=== PATIENT | female | born 1985 | race Caucasian/White ===

== ENCOUNTER → 2017-03-30 | Outpatient (REF) | payer OTHER ==
[~2017-03-30] MED LIST: FERR325T3 PO; MOTR200T44 PO; PERC5TAB12 PO; PRENTAB31 PO
== END ==
LOC: M LAB REF 13:21
PROVIDERS: ATTEND Obstetrics & Gynecology
DX: Z01.419 Encounter for gynecological examination (general) (routine) without abnormal findings (principal); Z11.51 Encounter for screening for human papillomavirus (HPV)

== ENCOUNTER → 2017-03-30 | Outpatient (CLI) | payer OTHER | LOC: M SMT 11:26 | PROVIDERS: ATTEND Obstetrics & Gynecology | DX: Z11.3 Encounter for screening for infections with a predominantly sexual mode of transmission (principal) ==

== ENCOUNTER 2017-10-20 13:36 | Emergency (ER) | payer OTHER | END 2017-10-20 14:41 | disposition home or self-care (01) | LOC: M ED 13:36 | DX: K02.9 Dental caries, unspecified (principal) | CPT/HCPCS: 99282 ==

== ENCOUNTER → 2019-09-14 | Outpatient (REF) | payer OTHER ==
[~2019-09-14] MED LIST changes: +CLIN150C14 PO; +TYLE325T5 PO
[2019-09-14 16:16] LABS: INFLUENZA A AMPLIFICATION NEGATIVE (NEGATIVE); INFLUENZA B AMPLIFICATION POSITIVE (NEGATIVE)
== END ==
LOC: M LAB REF 15:13
PROVIDERS: ATTEND Physician Assistant
DX: J11.1 Influenza due to unidentified influenza virus with other respiratory manifestations (principal)

== ENCOUNTER 2019-10-04 09:10 | Emergency (ER) | payer OTHER ==
[~2019-10-04] VITALS: Ht 152.4 cm; Wt 69.9 kg
[2019-10-04 09:11] VITALS: BP 134/77
[2019-10-04] MEDS ORDERED: OTEZ1TAB3 (09:18)
[2019-10-04] MEDS ORDERED: CYCL10TA PO (09:54)
[2019-10-04] MEDS ORDERED: NAPR-837 PO (09:54)
== END 2019-10-04 10:03 | disposition home or self-care (01) ==
LOC: M ED 09:10
DX: S39.012A Strain of muscle, fascia and tendon of lower back, initial encounter (principal); W00.0XXA Fall on same level due to ice and snow, initial encounter; Y92.89 Other specified places as the place of occurrence of the external cause; Y93.89 Activity, other specified; Y99.8 Other external cause status; M54.16 Radiculopathy, lumbar region; F17.200 Nicotine dependence, unspecified, uncomplicated; Z88.2 Allergy status to sulfonamides

== ENCOUNTER → 2024-02-19 | Outpatient (REF) | payer OTHER, MEDICAID ==
[~2024-02-19] MED LIST changes: +APRE30TA3; -CLIN150C14 PO; +CLIN150C17 PO; +CYCL-707 PO; +NAPR-837 PO
== END ==
LOC: M LAB REF 16:04
PROVIDERS: ATTEND Physician Assistant
DX: J02.9 Acute pharyngitis, unspecified (principal)

== ENCOUNTER 2024-07-23 14:09 | Emergency (ER) | payer OTHER ==
[~2024-07-23] VITALS: Ht 152.4 cm; Wt 74.9 kg
[~2024-07-23 14:09] MED LIST changes: -APRE30TA3; +APRE30TA3 PO
[2024-07-23 15:09] LABS: BASO # 0.1 10^3/uL (0.0-0.2); BASO % 0.5 % (0.0-1.0); EOS % 0.1 % (0.0-3.0); HEMATOCRIT 45.5 % (36.0-47.0); HEMOGLOBIN 15.4 g/dl (12.0-15.5); LYMPH # 1.9 10^3/uL (1.5-5.0); LYMPH % 13.2 % (24.0-44.0); MEAN CORPUSCULAR HEMOGLOBIN 28.4 pg (27.0-33.0); MEAN CORPUSCULAR HGB CONC 33.8 g/dl (32.0-36.5); MEAN CORPUSCULAR VOLUME 83.8 fl (80.0-96.0); MONO # 0.9 10^3/uL (0.0-0.8); MONO % 6.4 % (2.0-8.0); NEUTROPHILS # 11.3 10^3/uL (1.5-8.5); NEUTROPHILS % 79.3 % (36.0-66.0); PLATELET COUNT, AUTOMATED 422 10^3/uL (150-450); RED BLOOD COUNT 5.43 10^6/uL (4.00-5.40); WHITE BLOOD COUNT 14.2 10^3/uL (4.0-10.0)
[2024-07-23 15:38] LABS: HCG, SERUM QUALITATIVE NEGATIVE (NEGATIVE)
[2024-07-23 15:39] LABS: LIPASE 27 U/L (12-53)
[2024-07-23 15:41] LABS: ALBUMIN 3.9 G/DL (3.2-5.2); ALKALINE PHOSPHATASE 86 U/L (35-104); ALT/SGPT 16 U/L (7.0-40); AST/SGOT 9 U/L (<34); BILIRUBIN,DIRECT 0.3 MG/DL (<0.4); BILIRUBIN,TOTAL 1.2 MG/DL (0.3-1.2); TOTAL PROTEIN 7.9 G/DL (5.7-8.2)
[2024-07-23] MEDS ORDERED: ISOVUE-370 76% 100ML VIAL As Ordered ONE (16:39)
[2024-07-23] MEDS: KETOROLAC 30 MG/ML 1ML VIAL IV ONE (16:40)
[2024-07-23] MEDS: ONDANSETRON 4MG 2ML VIAL IV ONE (16:40)
[2024-07-23] MEDS: MORPHINE 4 MG/ML 1ML VIAL IV ONE (17:40)
[2024-07-23] MEDS: MAALOX 30 ML SUSP *UDC PO ONE (19:00)
[2024-07-23] MEDS: LIDOCAINE VISCOUS 2% SOLN 15ML UDC PO ONE (19:00)
[2024-07-23] MEDS ORDERED: PERC5TAB12 PO (19:01)
[2024-07-23] MEDS: OXYCODONE/APAP 5MG/325MG(HOME DOSE PACK) PO ONE (19:05)
[2024-07-23] MEDS: AUGMENTIN 875 MG TAB PO ONE (19:05)
[2024-07-23] MEDS ORDERED: AMOX875T2 PO (19:10)
[2024-07-23] MEDS ORDERED: ONDA-282 PO (19:22)
[2024-07-23 19:47] VITALS: BP 115/72; TEMP 98.2; O2SAT 97
[2024-07-24] MEDS ORDERED: AMOX875T2 PO (12:48)
[2024-07-26] MEDS ORDERED: PANT20TA6 PO (11:08)
== END 2024-07-23 19:52 | disposition home or self-care (01) ==
LOC: M ED 14:09
DX: K80.00 Calculus of gallbladder with acute cholecystitis without obstruction (principal); Z88.2 Allergy status to sulfonamides; Z79.1 Long term (current) use of non-steroidal anti-inflammatories (NSAID); Z79.2 Long term (current) use of antibiotics; Z79.899 Other long term (current) drug therapy
CPT/HCPCS: 74177; 80047; 80076; 81001; 83690; 84703; 85025; 96374; 96375; 99284; J1885; J2405; Q9967

== ENCOUNTER 2024-07-24 11:02 | Inpatient (IN) | payer OTHER ==
[~2024-07-24] VITALS: Ht 152.4 cm; Wt 74.7 kg
[~2024-07-24 11:02] MED LIST changes: +AMOX875T2 PO; +ONDA-282 PO
[2024-07-24] MEDS: ONDANSETRON 4MG 2ML VIAL IV ONE (11:25)
[2024-07-24] MEDS: MORPHINE 4 MG/ML 1ML VIAL IV PRN ×2 (11:39→18:17)
[2024-07-24 11:40] LABS: BASO % 0.4 % (0.0-1.0); EOS % 0.3 % (0.0-3.0); HEMATOCRIT 42.2 % (36.0-47.0); HEMOGLOBIN 14.5 g/dl (12.0-15.5); LYMPH # 1.3 10^3/uL (1.5-5.0); LYMPH % 11.5 % (24.0-44.0); MEAN CORPUSCULAR HEMOGLOBIN 28.4 pg (27.0-33.0); MEAN CORPUSCULAR HGB CONC 34.4 g/dl (32.0-36.5); MEAN CORPUSCULAR VOLUME 82.7 fl (80.0-96.0); MONO # 0.8 10^3/uL (0.0-0.8); MONO % 7.2 % (2.0-8.0); NEUTROPHILS # 8.9 10^3/uL (1.5-8.5); NEUTROPHILS % 80.2 % (36.0-66.0); PLATELET COUNT, AUTOMATED 364 10^3/uL (150-450); WHITE BLOOD COUNT 11.1 10^3/uL (4.0-10.0)
[2024-07-24 12:10] LABS: ALBUMIN 3.6 G/DL (3.2-5.2); BILIRUBIN,DIRECT 0.3 MG/DL (<0.4); BILIRUBIN,TOTAL 1.2 MG/DL (0.3-1.2); TOTAL PROTEIN 7.4 G/DL (5.7-8.2)
[2024-07-24] MEDS: MAALOX 30 ML SUSP *UDC PO ONE ×2 (12:40→20:51)
[2024-07-24] MEDS: LIDOCAINE VISCOUS 2% SOLN 15ML UDC PO ONE (12:40)
[2024-07-24] MEDS ORDERED: AMOX875T2 PO (12:48)
[2024-07-24] MEDS ORDERED: HOME MED LIST COMPLETE! XX SCH (12:50)
[2024-07-24] MEDS: METOCLOPRAMIDE INJ 10MG/2ML VIAL IV ONE (13:00)
[2024-07-24] MEDS: NS (Normal Saline) 0.9% 1,000 ML IV SCH (13:50)
[2024-07-24] MEDS: cefTRIAXone SOD 1 GM in DEXTROSE 5% (D5W) ADV/MINI-BAG 50 ML IV SCH (14:00)
[2024-07-24] MEDS ORDERED: ONDANSETRON 4MG 2ML VIAL IV PRN (14:10)
[2024-07-24] MEDS: metroNIDAZOLE 500 MG in IV 1 EA IV SCH (15:00)
[2024-07-24 16:06] LABS: BLOOD UREA NITROGEN 8 MG/DL (9-23); CARBON DIOXIDE LEVEL 26 MMOL/L (20-31); CHLORIDE LEVEL 104 MMOL/L (98-107); CREATININE FOR GFR 0.62 MG/DL (0.55-1.30); GLOMERULAR FILTRATION RATE > 60.0 (>60); GLUCOSE, FASTING 101 MG/DL (60-100); POTASSIUM SERUM 4.1 MMOL/L (3.5-5.1); SODIUM LEVEL 138 MMOL/L (136-145)
[2024-07-24 18:21] VITALS: BP 130/65; TEMP 99.9; O2SAT 97
[2024-07-24] MEDS: KETOROLAC 30 MG/ML 1ML VIAL IV PRN (19:57)
[2024-07-24 20:30] VITALS: BP 127/87; TEMP 99.2; O2SAT 97
[2024-07-25] VITALS: BP 112/62; TEMP 99.3; O2SAT 97
[2024-07-25 04:00] VITALS: BP 114/68; TEMP 98.8; O2SAT 98
[2024-07-25 06:53] LABS: HEMATOCRIT 37.7 % (36.0-47.0); HEMOGLOBIN 12.9 g/dl (12.0-15.5); MEAN CORPUSCULAR HEMOGLOBIN 28.4 pg (27.0-33.0); MEAN CORPUSCULAR HGB CONC 34.2 g/dl (32.0-36.5); PLATELET COUNT, AUTOMATED 291 10^3/uL (150-450); RED BLOOD COUNT 4.54 10^6/uL (4.00-5.40); WHITE BLOOD COUNT 8.7 10^3/uL (4.0-10.0)
[2024-07-25 07:35] LABS: ALBUMIN 2.9 G/DL (3.2-5.2); ALKALINE PHOSPHATASE 69 U/L (35-104); ALT/SGPT 14 U/L (7.0-40); AST/SGOT 11 U/L (<34); BILIRUBIN,TOTAL 1.2 MG/DL (0.3-1.2); BLOOD UREA NITROGEN 9 MG/DL (9-23); CALCIUM LEVEL 8.9 MG/DL (8.5-10.1); CARBON DIOXIDE LEVEL 25 MMOL/L (20-31); CHLORIDE LEVEL 104 MMOL/L (98-107); CREATININE FOR GFR 0.71 MG/DL (0.55-1.30); GLOMERULAR FILTRATION RATE > 60.0 (>60); GLUCOSE, FASTING 100 MG/DL (60-100); POTASSIUM SERUM 3.8 MMOL/L (3.5-5.1); SODIUM LEVEL 139 MMOL/L (136-145); TOTAL PROTEIN 6.2 G/DL (5.7-8.2)
[2024-07-25 08:06] VITALS: BP 110/70; TEMP 98.8; O2SAT 99
[2024-07-25] MEDS ORDERED: APREMILAST 30 MG TAB (PATIENT'S OWN MED) PO SCH (09:00)
[2024-07-25 09:46] VITALS: BP 110/70; O2SAT 99
[2024-07-25 11:38] VITALS: BP 115/70; TEMP 99.1; O2SAT 99
[2024-07-25 12:00] VITALS: BP 112/68; TEMP 98.8; O2SAT 98
[2024-07-25] MEDS ORDERED: NAPROXEN 250 MG TAB PO PRN (14:40)
[2024-07-25] MEDS: AUGMENTIN 875 MG TAB PO ONE (15:13)
[2024-07-25] MEDS: ACETAMINOPHEN 325 MG TAB PO SCH (15:13)
[2024-07-25] MEDS ORDERED: NAPR-849 PO (17:36)
[2024-07-25] MEDS ORDERED: ACET-861 PO (17:36)
[2024-07-25] MEDS ORDERED: ONDA-282 PO (17:36)
[2024-07-25] MEDS ORDERED: AMOX875T2 PO (17:36)
[2024-07-25] MEDS ORDERED: AUGMENTIN 875 MG TAB PO SCH (21:00)
[2024-07-26] MEDS ORDERED: PANT20TA6 PO (11:08)
== END 2024-07-25 18:50 | disposition home or self-care (01) ==
LOC: M ED 11:02 → M ED INP 13:49 → M MS5PR 18:00
PROVIDERS: ADMIT Student in an Organized Health Care Education/Training Program; ATTEND Student in an Organized Health Care Education/Training Program
DX: K81.0 Acute cholecystitis (principal); F17.290 Nicotine dependence, other tobacco product, uncomplicated; L40.9 Psoriasis, unspecified; Z79.899 Other long term (current) drug therapy; Z88.2 Allergy status to sulfonamides

== ENCOUNTER 2024-07-29 07:52 | Day surgery (SDC) | payer OTHER ==
[~2024-07-29] VITALS: Ht 154.9 cm; Wt 75.3 kg
[~2024-07-29 07:52] MED LIST changes: +ACET-861 PO; +NAPR-849 PO; +PANT20TA6 PO
[2024-07-29] MEDS ORDERED: LIDOCAINE 2% 100MG/5ML SDV (FOR ANES.) As Ordered ONE (07:55)
[2024-07-29] MEDS ORDERED: ACETAMINOPHEN 1000MG/100ML IV BAG As Ordered ONE (07:55)
[2024-07-29] MEDS ORDERED: fentaNYL 100 MCG/2 ML INJECTION As Ordered ONE (07:55)
[2024-07-29] MEDS ORDERED: MIDAZOLAM INJ 2MG/2ML VIAL As Ordered ONE (07:55)
[2024-07-29] MEDS ORDERED: propofoL 200 MG/20 ML VIAL As Ordered ONE (07:56)
[2024-07-29] MEDS ORDERED: ROCURONIUM BROMIDE 50MG/5ML VIAL As Ordered ONE (07:56)
[2024-07-29] MEDS ORDERED: GLYCOPYRROLATE INJ 0.2 MG/ML 2 ML VIAL As Ordered ONE (07:59)
[2024-07-29] MEDS ORDERED: NS (Normal Saline) 0.9% 1,000 ML IV SCH ×2 (08:35→11:00)
[2024-07-29] MEDS ORDERED: ONDANSETRON 4MG 2ML VIAL As Ordered ONE (09:45)
[2024-07-29] MEDS ORDERED: KETOROLAC 60MG 2ML VIAL As Ordered ONE (09:45)
[2024-07-29] MEDS ORDERED: SUGAMMADEX SODIUM 500 MG/5 ML VIAL (BRIDION) As Ordered ONE (09:45)
[2024-07-29] MEDS: INDOCYANINE GREEN 25MG VIAL (IC-GREEN) As Ordered ONE (10:20)
[2024-07-29] MEDS: ceFAZolin 2 GM/D5W 50 ML IV BAG As Ordered ONE (10:35)
[2024-07-29] MEDS ORDERED: HYDROMORPHONE HCL 0.5 MG/ 0.5 ML SYRINGE IV PRN (11:00)
[2024-07-29] MEDS ORDERED: oxyCODONE 5MG TAB PO PRN (11:00)
[2024-07-29] MEDS: fentaNYL 100 MCG/2 ML INJECTION IV PRN (11:12)
[2024-07-29] MEDS: ONDANSETRON 4MG 2ML VIAL IV PRN (11:45)
[2024-07-29 12:16] VITALS: BP 124/70; TEMP 97; O2SAT 100
[2024-07-29] MEDS ORDERED: NORCO, ANEXSIA 5/325MG TABLET (HYDROcodone/ACETAMINOPHEN) PO PRN (13:50)
== END 2024-07-29 13:18 | disposition home or self-care (01) ==
LOC: M SDC 07:52
PROVIDERS: ATTEND Surgery
DX: K81.0 Acute cholecystitis (principal); N73.6 Female pelvic peritoneal adhesions (postinfective); Z88.2 Allergy status to sulfonamides; Z79.899 Other long term (current) drug therapy; Z87.891 Personal history of nicotine dependence
CPT/HCPCS: 47563; J0131; J0665; J0690; J1100; J1885; J2250; J2405; J3010; Q9968; S2900

== ENCOUNTER → 2024-11-14 | Outpatient (CLI) | payer OTHER | LOC: M RAD 08:59 | PROVIDERS: ATTEND Surgery | DX: R10.11 Right upper quadrant pain (principal) ==

== ENCOUNTER → 2025-04-14 | Outpatient (CLI) | payer OTHER | LOC: M WHC 12:58 | PROVIDERS: ATTEND Nurse Practitioner Family | DX: N94.89 Other specified conditions associated with female genital organs and menstrual cycle (principal) ==

== ENCOUNTER → 2025-04-20 | Outpatient (CLI) | payer OTHER ==
[~2025-04-20] MED LIST changes: +ISOVUE-370 76% 100 ML VIAL As Ordered ONE
== END ==
LOC: M RAD 10:38
PROVIDERS: ATTEND Registered Nurse
DX: R93.89 Abnormal findings on diagnostic imaging of other specified body structures (principal)
CPT/HCPCS: 74177; Q9967